=== PATIENT | male | born 1960 | race Caucasian/White ===

== ENCOUNTER 2020-12-04 13:16 | Emergency (ER) | payer MEDICAID ==
[~2020-12-04] VITALS: Ht 177.8 cm; Wt 77.0 kg
[2020-12-04 13:33] VITALS: BP 131/84
[2020-12-04] MEDS ORDERED: ketorolac trometh. 30mg/ml inj. IM ONE (13:55)
[2020-12-04] MEDS ORDERED: ketorolac trometh inj. 60 MG/2 ML VIAL IM ONE (13:55)
[2020-12-04] MEDS ORDERED: HYDROcodone/acetaminophen 10/325mg tab PO ONE (13:55)
[2020-12-04] MEDS ORDERED: LORazepam 2 mg/ml vial IM ONE (15:00)
== END 2020-12-04 18:10 | disposition home or self-care (01) ==
LOC: ER 13:17
DX: G57.02 Lesion of sciatic nerve, left lower limb (principal)
CPT/HCPCS: 72170; 96372; 99284; J1885; J2060